=== PATIENT | female | born 1985 ===

== ENCOUNTER 2017-02-19 17:53 | Emergency (ER) | payer MEDICAID ==
[2017-02-19 18:04] VITALS: BP 131/62; RESP 16
--- NOTE | 2017-02-19 18:47 | ED PDOC ---
HPI: CCC, URI, Sore Throat Time Seen by Provider: 02/19/17 18:55 Chief Complaint (Nursing): ENT Problem Chief Complaint (Provider): sore throat History Per: Patient History/Exam Limitations: no limitations Have you had recent travel within the past 21 days to any of the following countries: [place], [place], [place] or [place]?: No Onset/Duration Of Symptoms: Days (x 1) Location Of Pain: Throat Sick Contacts (Context): None Associated Symptoms: Fever, Chills, Sore Throat, Other (headache ). denies: Cough, Sputum, Nasal Congestion, Nausea, Vomiting, Diarrhea Additional Complaint(s): Starla Peterson is a 31 year old female, with no previous medical history, who presents to the ED with complaints of a sore throat accompanied by a headache, tactile fever, chills and body aches ongoing for one day. Patient reports noticing spots in her throat last night. She has been taking advil to alleviate symptoms with the last dose taken at 16:30. PMD: Doctor in the [place] Past Medical History Reviewed: Historical Data, Nursing Documentation, Vital Signs Vital Signs: Last Vital Signs Temp 100.3 F H 02/19/17 18:01 Pulse 113 H 02/19/17 18:01 Resp 16 02/19/17 18:01 BP 131/62 02/19/17 18:01 Pulse Ox 97 02/19/17 18:48 - Medical History PMH: No Chronic Diseases - Surgical History Surgical History: No Surg Hx - Family History Family History: States: Unknown Family Hx - Social History Current smoker - smoking cessation education provided: No Alcohol: None Drugs: Denies - Home Medications Home Medications: Ambulatory Orders Medication Instructions Recorded Ibuprofen [Motrin] 1 tab PO Q8 PRN #21 tab 02/19/17 - Allergies Allergies/Adverse Reactions: Allergies Allergy/AdvReac Type Severity Reaction Status Date / Time acetaminophen [From Tylenol] Allergy RASH Verified 02/19/17 18:01 Review of Systems ROS Statement: Except As Marked, All Systems Reviewed And Found Negative Constitutional: Positive for: Fever, Chills, Other (body aches ) ENT: Positive for: Throat Pain Neurological: Positive for: Headache Physical Exam - Reviewed Nursing Documentation Reviewed: Yes Vital Signs Reviewed: Yes - Physical Exam Appears: Positive for: Well, Non-toxic, No Acute Distress ENT: Positive for: Tonsillar Exudate (right tonsil ). Negative for: Pharyngeal Erythema, Tonsillar Swelling Neurologic/Psych: Positive for: Alert, Oriented - ECG O2 Sat by Pulse Oximetry: 97 (RA) Pulse Ox Interpretation: Normal - Progress ED Course And Treament: decadron 10 mg IM x 1 dose strep A neg Medical Decision Making Medical Decision Making: Initial Impression: Sore throat Initial Plan: * rapid strep * reevaluation Scribe Attestation: Documented by Hollie Munguia, acting as a scribe for Johnson Arellano PA-C. Provider Scribe Attestation: All medical record entries made by the Scribe were at my direction and personally dictated by me. I have reviewed the chart and agree that the record accurately reflects my personal performance of the history, physical exam, medical decision making, and the department course for this patient. I have also personally directed, reviewed, and agree with the discharge instructions and disposition. Disposition - Clinical Impression Clinical Impression: Pharyngitis - Patient ED Disposition Is Patient to be Admitted: No - Disposition Disposition: Routine/Home Disposition Time: 20:55 Condition: FAIR Prescriptions: Ibuprofen [Motrin] 1 tab PO Q8 PRN #21 tab PRN Reason: Pain, Moderate (4-7) Instructions: Pharyngitis (ED) Forms: [facility] ED School/Work Excuse
[2017-02-19 22:06] VITALS: PULSE 94; TEMP 99.7; O2SAT 99
== END 2017-02-19 22:26 | disposition home or self-care (01) ==
LOC: H.ER 17:53
DX: J02.9 Acute pharyngitis, unspecified (principal)

== ENCOUNTER 2017-02-23 16:27 | Emergency (ER) | payer MEDICAID ==
[2017-02-23 16:45] VITALS: BP 122/86; PULSE 64; RESP 19; TEMP 98.5; O2SAT 100
--- NOTE | 2017-02-23 17:16 | ED PDOC ---
HPI: CCC, URI, Sore Throat Time Seen by Provider: 02/23/17 16:51 Chief Complaint (Nursing): ENT Problem Chief Complaint (Provider): Cold Sore on Right Lower Lip History Per: Patient History/Exam Limitations: no limitations Onset/Duration Of Symptoms: Days (x2) Current Symptoms Are (Timing): Still Present Additional Complaint(s): Starla Peterson is a 31 year old female that presents to the ED with a chief complaint of a cold sore on her right lower lip that she has had for the past two days. Patient states that she was recently seen in the ED for a fever and throat pain that she had earlier this week that have both since resolved. She states that she took Advil about 2 hours ago and experienced a slight relief in her pain. Patient states that throat pain has improved since her previous visit. Past Medical History Reviewed: Historical Data, Nursing Documentation, Vital Signs Vital Signs: Last Vital Signs Temp 98.5 F 02/23/17 16:41 Pulse 64 02/23/17 16:41 Resp 19 02/23/17 16:41 BP 122/86 02/23/17 16:41 Pulse Ox 100 02/23/17 17:21 - Medical History PMH: Hypercholesterolemia - Surgical History Surgical History: (x1) - Family History Family History: States: No Known Family Hx - Living Arrangements Living Arrangements: With Family - Social History Current smoker - smoking cessation education provided: No Alcohol: None Drugs: Denies - Home Medications Home Medications: Ambulatory Orders Medication Instructions Recorded Ibuprofen [Motrin] 1 tab PO Q8 PRN #21 tab 02/19/17 - Allergies Allergies/Adverse Reactions: Allergies Allergy/AdvReac Type Severity Reaction Status Date / Time acetaminophen [From Tylenol] Allergy RASH Verified 02/19/17 18:01 Review of Systems ROS Statement: Except As Marked, All Systems Reviewed And Found Negative Constitutional: Negative for: Fever ENT: Positive for: Other (cold sore on right lower lip) Cardiovascular: Negative for: Chest Pain Gastrointestinal: Negative for: Nausea, Vomiting Physical Exam - Reviewed Nursing Documentation Reviewed: Yes Vital Signs Reviewed: Yes - Physical Exam Appears: Positive for: Non-toxic, No Acute Distress Head Exam: Positive for: ATRAUMATIC, NORMOCEPHALIC Skin: Positive for: Normal Color, Warm Eye Exam: Positive for: Normal appearance, EOMI, PERRL ENT: Positive for: TM Is/Are (normal bilaterally), Other (resolving cold sore on right lower lip). Negative for: Nasal Congestion, Pharyngeal Erythema, Tonsillar Exudate, Tonsillar Swelling Neck: Positive for: Painless ROM Cardiovascular/Chest: Positive for: Regular Rate, Rhythm. Negative for: Murmur Respiratory: Positive for: Normal Breath Sounds. Negative for: Wheezing Gastrointestinal/Abdominal: Positive for: Soft. Negative for: Tenderness Back: Negative for: L CVA Tenderness, R CVA Tenderness Extremity: Positive for: Normal ROM. Negative for: Pedal Edema Lymphatic: Positive for: Adenopathy (submental lymphadenopathy) Neurologic/Psych: Positive for: Alert, Oriented - ECG O2 Sat by Pulse Oximetry: 100 (RA) Pulse Ox Interpretation: Normal Medical Decision Making Medical Decision Making: Impression: Resolving Herpes Labialis Previous records reviewed. Throat culture from previous visit last week is negative. Patient was instructed that herpes labialis self-limited and will resolve on its own. She was advised to continue with Motrin for pain. She was instructed to follow up with primary doctor in 2-3 days. Scribe Attestation: Documented by Toya Haider, acting as a scribe for Haydee Conway PA-C. Provider Scribe Attestation: All medical record entries made by the Scribe were at my direction and personally dictated by me. I have reviewed the chart and agree that the record accurately reflects my personal performance of the history, physical exam, medical decision making, and the department course for this patient. I have also personally directed, reviewed, and agree with the discharge instructions and disposition. Disposition - Clinical Impression Clinical Impression: Herpes labialis without complication - Patient ED Disposition Is Patient to be Admitted: No Counseled Patient/Family Regarding: Studies Performed, Diagnosis, Need For Followup - Disposition Referrals: [facility] [Outside] Disposition: Routine/Home Disposition Time: 18:07 Condition: STABLE Additional Instructions: Continue with Motrin for pain. Follow-up with primary doctor or clinic in 2-3 days or return any time if acutely worse. Instructions: Oral Herpes Simplex Virus Infections (ED)
== END 2017-02-23 18:20 | disposition home or self-care (01) ==
LOC: H.ER 16:27
DX: B00.9 Herpesviral infection, unspecified (principal)